=== PATIENT | male | born 1935 | race Caucasian/White ===

== ENCOUNTER 2018-02-05 06:20 | Day surgery (SDC) | payer MEDICARE, OTHER ==
[2018-02-05] MEDS ORDERED: Sodium Tetradecyl Sulfate 1% 20 MG/2 ML SDV ONE (06:41)
[2018-02-05] MEDS ORDERED: Lidocaine 1% with EPINEPHrine 1:100,000 50 ML MDV ONE (06:42)
[2018-02-05] MEDS ORDERED: Sodium Chloride 0.9% 10 ML ONE (06:42)
[2018-02-05] MEDS ORDERED: fentaNYL 100 MCG/2 ML SDV ONE (07:44)
[2018-02-05] MEDS ORDERED: Midazolam 1 MG/ML 2 ML SDV ONE (07:44)
[2018-02-05] MEDS ORDERED: Propofol 200 MG/20 ML SDV ONE (07:44)
[2018-02-05] MEDS ORDERED: Lidocaine 1% w/EPINEPHrine 50 ML, Sodium Bicarbonate 5 MEQ in Sodium Chloride 0.9% 950 ML INJECT SCH (07:45)
[2018-02-05] MEDS ORDERED: Sodium Chloride 0.9% 1,000 ML IV SCH (08:00)
--- NOTE | 2018-02-05 10:52 | OR ---
DATE OF PROCEDURE: 02/05/2018 PROCEDURES PERFORMED: 1. Radiofrequency ablation of left greater saphenous vein. 2. Radiofrequency ablation of right greater saphenous vein. 3. Sclerotherapy of left leg, multiple. 4. Sclerotherapy of right leg, multiple. 5. Compression wrapping, left leg. 6. Compression wrapping, right leg. PREOPERATIVE DIAGNOSES: 1. Venous ulcer. 2. Venous insufficiency. POSTOPERATIVE DIAGNOSES: 1. Venous ulcer. 2. Venous insufficiency. COMPLICATIONS: None. DISTRIBUTION FIELD ENGINEER: None. ANESTHESIA: MAC/local. RISKS: Risks, benefits, alternatives, and limitations including, but not limited to infection, bleeding, perforation, and DVT formation were explained to the patient, and they wished to proceed. PROCEDURE IN DETAIL: The patient was placed in the supine position. The left GSV was accessed at the level of ankle first. This was accessed using a 21-gauge needle, then exchanged for a 35,000th wire, then exchanged for a 7-[place] sheath. RFA probe was advanced to greater than 3 cm from the saphenofemoral junction. This will be verified a second and a third time. Tumescent fluid was injected in a 1-cm jacket around this and verified a second and a third time. Direct even pressure was held as the RFA probe was deployed x2 proximally and distally, and x1 in all other segments. Sheath and device were then removed. Direct even pressure was held for 10 minutes and Dermabond was applied. The right leg was then performed in the same manner, same fashion, same technique, in the same sequence, and using the same equipment, except this was accessed at the proximal calf, and a 4-0 Vicryl suture would be used at the end for hemostatic purposes. Sclerotherapy was then performed of left and right legs using 0.33% sodium tetradecyl. This was always drawn back to ensure intravascular injection only. No more than 2 mL was injected in one location, four on the right and six on the left. Two-stage tubular compression wrapping was then performed in a [id number]-pb-wdhlgkqo gradient. This was two-layer vvtaqy-lh-obziq fashion. The patient tolerated the procedure well. Dariel Arroyo MD /[id number]
== END 2018-02-05 10:15 | disposition home or self-care (01) ==
LOC: JP.SDS 06:20
PROVIDERS: ATTEND Surgery
DX: I87.2 Venous insufficiency (chronic) (peripheral) (principal); I10 Essential (primary) hypertension; K21.9 Gastro-esophageal reflux disease without esophagitis; Z79.82 Long term (current) use of aspirin; Z79.899 Other long term (current) drug therapy; Z88.0 Allergy status to penicillin
CPT/HCPCS: 36470; 36475; J1642; J2250; J2704; J3010; J7030; J7050